=== PATIENT | female | born 1960 | race Hispanic/Latino ===

== ENCOUNTER 2016-06-01 18:19 | Emergency (ER) | payer SELFPAY ==
[2016-06-01 18:45] VITALS: TEMP 98.8
[2016-06-01] MEDS ORDERED: KETOROLAC TROMETHAMINE INJ 60 MG/2 ML VIAL IM ONE (19:04)
--- NOTE | 2016-06-01 22:31 | CT ---
PROCEDURE: Abdomen/Pelvis w/Contrast HISTORY: Right flank/RLQ pain Indication: Same as above Comparison: 08/22/2012 . Technique: CT of the abdomen and pelvis was done with intravenous contrast. Images were obtained from the lung base to the level of the pubic symphysis in axial plane, followed by orthogonal sagittal and coronal reconstruction. Oral contrast was not given for the study. The patient was injected with radiographic contrast intravenously, without any documented immediate adverse reactions. FINDINGS: Images through the lung bases do not show any focal infiltrates or pleural effusions. The distal esophagus is patulous, at the level of the gastroesophageal junction. The gallbladder is surgically absent. In the superior portion of the spleen note is made of a well demarcated linear bandlike nonenhancing area, which may represent a benign septation within the substance of the spleen. Note is made of mild constipation The liver, pancreas and the bilateral adrenal glands appear unremarkable. The bilateral kidneys enhance with contrast in a normal fashion. The urinary bladder is decompressed . The bilateral ureters and the bilateral periureteral soft tissues and fat planes are unremarkable. The small bowel appears unremarkable, without any evidence of small bowel obstruction or bowel wall thickening. There is no CT evidence of acute appendicitis, pericecal inflammatory change or ileocecal mesenteric adenitis. The ileocecal junction appears unremarkable. There is no CT evidence of acute colonic diverticulitis or colitis or large bowel obstruction. The splenic and portal veins are of normal caliber, without any filling defects. There is no pathological lymphadenopathy in the retroperitoneum or in the pelvic region. There is no evidence of free fluid or free air in the abdomen or the pelvic region. There is no clinically significant abdominal aortic aneurysm. There is no clinically significant inguinal or ventral hernia. The visualized lumbar spine shows underlying mild degenerative change . The paravertebral soft tissues are unremarkable. The remainder of the pelvic structures are unremarkable. IMPRESSION: There are no acute findings in the abdomen or the pelvis. A normal appendix and normal periappendiceal fat planes are seen. There is mild constipation Location of Interpretation: Teler[facility]iology Electronically signed by: Raymundo Malcolm MD 06/01/2016 10:21 PM [employer]
--- NOTE | 2016-06-01 22:50 | ED.PDOC ---
History of Present Illness - General Chief Complaint: Problem Stated Complaint: right flank/abdominal pain Time Seen by Provider: 06/01/16 19:03 Source: patient, RN notes reviewed, Vital Signs reviewed Exam Limitations: no limitations - History of Present Illness Initial Comments: Patient is a 56 y/o female who has had right flank and pelvic pain for the past 24 hours. The pain is radiating, sharp. Se denies dysuria, has had nausea and vomiting and diarrhea yesterday. Timing/Duration: 24 hours Severity: severe Improving Factors: nothing Associated Symptoms: malaise, nausea/vomiting, weakness Allergies/Adverse Reactions: Allergies NO KNOWN ALLERGY Allergy (Verified 06/01/16 18:45) Home Medications: Ambulatory Orders Aspirin [Jessica Chewable Low Dose] 81 mg PO DAILY #0 09/22/13 Citalopram Hydrobromide 20 mg PO DAILY #0 09/22/13 Gabapentin [Neurontin] 300 mg PO TID #0 09/22/13 Insulin NPH Isophane & Reg (Hu [Novolin 70/30 (70-30) 100 Unit/ml] 15 units SC BEDTIME #0 09/22/13 Nitroglycerin 0.4 mg Tab [Nitrostat] 1 ea SL .Q5M PRN #0 09/22/13 Omeprazole [Prilosec Cap] 20 mg PO BID #0 cap 09/22/13 Promethazine HCl 25 mg PO Q6H PRN #10 tab 06/01/16 Sulfamethoxazole-Trimethoprim [Bactrim Ds 800-160 mg] 1 tab PO BID #14 tab 06/01 Review of Systems - Review of Systems Constitutional: States: malaise EENTM: States: no symptoms reported Respiratory: States: short of breath Cardiology: States: no symptoms reported Gastrointestinal/Abdominal: States: abdominal pain, diarrhea, nausea, vomiting Genitourinary: States: no symptoms reported Musculoskeletal: States: no symptoms reported Skin: States: no symptoms reported Neurological: States: no symptoms reported Endocrine: States: no symptoms reported Hematologic/Lymphatic: States: no symptoms reported All other Systems: Reviewed and Negative Past Medical History (General) - Patient Medical History Hx Seizures: No Hx Stroke: No Hx Asthma: No Hx of COPD: No Hx Cardiac Disorders: No Hx Congestive Heart Failure: No Hx Pacemaker: No Hx Hypertension: Yes Hx Diabetes: Yes Hx MRSA: No Surgical History: cholecystectomy - Vaccination History Hx Tetanus, Diphtheria Vaccination: No Hx Influenza Vaccination: No Hx Pneumococcal Vaccination: No - Social History Hx Tobacco Use: Yes Hx Alcohol Use: No Hx Substance Use: No Hx Substance Use Treatment: No Hx Depression: No Hx Physical Abuse: No Hx Emotional Abuse: No - Activities of Daily Living Hospice Agency (if applicable):: None - Female History Patient is a Female of Child Bearing Age (10 -59 yrs old): No Patient : No Family Medical History - Family History Mother Family History: Unknown Living Status: Physical Exam - Physical Exam General Appearance: Alert, Obvious distress Ears, Nose, Throat: hearing grossly normal, normal ENT inspection Respiratory: lungs clear, normal breath sounds, no respiratory distress, no accessory muscle use Cardiovascular/Chest: regular rate, rhythm, no edema, no gallop, no murmur Gastrointestinal/Abdominal: normal bowel sounds, soft, no organomegaly, no pulsatile mass, tenderness Back Exam: no vertebral tenderness, CVA tenderness (R) Extremity: normal range of motion, normal inspection Neurologic: alert, normal mood/affect, oriented x 3 Skin Exam: normal color, warm/dry Progress - Results/Orders Results/Orders: 06/01/16 18:30 Temperature 98.8 F Pulse Rate [ 86 pulse ox] Respiratory 20 Rate Blood Pressure 166/74 [Left Arm] O2 Sat by Pulse 94 L Oximetry 06/01/16 21:15 Hold Metformin x 48Hrs [id number] Laboratory Results WBC 10.6 K/mm3 (4.8-10.8) 06/01/16 20:05 RBC 4.81 M/mm3 (4.20-5.40) 06/01/16 20:05 Hgb 13.6 gm/dL (12.0-16.0) 06/01/16 20:05 Hct 41.6 % (36.0-47.0) 06/01/16 20:05 MCV 86.6 fl (81.0-99.0) 06/01/16 20:05 MCH 28.3 pg (27.0-31.0) 06/01/16 20:05 MCHC 32.7 g/dL (33.0-37.0) L 06/01/16 20:05 RDW 14.2 % (11.5-14.5) 06/01/16 20:05 Plt Count 239 K/mm3 (130-400) 06/01/16 20:05 MPV 8.3 fl (7.40-10.4) 06/01/16 20:05 Absolute Neuts (auto) 5.00 K/uL (1.8-6.8) 06/01/16 20:05 Absolute Lymphs (auto) 4.00 K/uL (1.0-3.4) H 06/01/16 20:05 Absolute Monos (auto) 0.70 K/uL (0.2-0.8) 06/01/16 20:05 Absolute Eos (auto) 0.70 K/uL (0.0-0.4) H 06/01/16 20:05 Absolute Basos (auto) 0.10 K/uL (0.0-0.1) 06/01/16 20:05 Neutrophils % 47.5 % (42.0-78.0) 06/01/16 20:05 Lymphocytes % 37.6 % (20.0-50.0) 06/01/16 20:05 Monocytes % 6.6 % (2.0-9.0) 06/01/16 20:05 Eosinophils % 7.0 % (1.0-5.0) H 06/01/16 20:05 Basophils % 1.3 % (0.0-2.0) 06/01/16 20:05 Sodium 139 mmol/L (135-145) 06/01/16 20:05 Potassium 4.6 mmol/L (3.6-5.0) 06/01/16 20:05 Chloride 102 mmol/L (101-111) 06/01/16 20:05 Carbon Dioxide 29 mmol/L (21-31) 06/01/16 20:05 Anion Gap 12.6 (12-18) 06/01/16 20:05 BUN 16 mg/dL (7-18) 06/01/16 20:05 Creatinine 0.74 mg/dL (0.6-1.3) 06/01/16 20:05 BUN/Creatinine Ratio 21.6 (10-20) H 06/01/16 20:05 Random Glucose 253 mg/dL (70-105) H 06/01/16 20:05 Serum Osmolality 287.3 mOsm/L (275-295) 06/01/16 20:05 Calcium 9.4 mg/dL (8.4-10.2) 06/01/16 20:05 Total Bilirubin 0.2 mg/dL (0.2-1.0) 06/01/16 20:05 AST 15 IU/L (10-42) 06/01/16 20:05 ALT 11 IU/L (10-60) 06/01/16 20:05 Alkaline Phosphatase 138 IU/L (42-121) H 06/01/16 20:05 Serum Total Protein 7.5 gm/dL (6.4-8.2) 06/01/16 20:05 Albumin 4.0 g/dl (3.2-5.5) 06/01/16 20:05 Globulin 3.5 gm/dL (2.3-3.5) 06/01/16 20:05 Albumin/Globulin Ratio 1.1 (1.1-1.9) 06/01/16 20:05 Urine Color Yellow (Yellow) 06/01/16 Unknown Urine Appearance Clear (Clear) 06/01/16 Unknown Urine pH 6.5 (4.5-7.8) 06/01/16 Unknown Ur Specific [place] 1.015 (1.005-1.030) 06/01/16 Unknown Urine Protein Negative mg/dL 06/01/16 Unknown Urine Glucose (UA) Negative mg/dL (Negative) 06/01/16 Unknown Urine Ketones Negative mg/dL (NEGATIVE) 06/01/16 Unknown Urine Blood Trace-intact (Negative) H 06/01/16 Unknown Urine Nitrite Negative 06/01/16 Unknown Urine Bilirubin Negative (NEGATIVE) 06/01/16 Unknown Urine Urobilinogen 0.2 mg/dL (0.2-1.0) 06/01/16 Unknown Ur Leukocyte Esterase Negative (Negative) 06/01/16 Unknown Urine RBC 0-1 /hpf 06/01/16 Unknown Urine WBC 0 /hpf 06/01/16 Unknown Ur Epithelial Cells 0 /hpf 06/01/16 Unknown Urine Bacteria 0 06/01/16 Unknown - EKG/XRAY/CT CT: Abd/pelvis: No acute process CT Ordered: Yes CT Interpretation Call Back: No - Report sent Departure - Departure Clinical Impression: Cystitis, Gastroenteritis Time of Disposition: 23:02 Disposition: Discharge to Home or Self Care Condition: Fair Departure Forms: ED Discharge - Pt. Copy, Patient Portal Self Enrollment Instructions: Acute Cystitis, DI for Acute Cystitis, DI for Viral Gastroenteritis -- Adult, Gastroenteritis Diet Diet: resume usual diet Referrals: Radha Avina NP [Primary Care Provider] - 1-2 Weeks Prescriptions: Sulfamethoxazole-Trimethoprim [Bactrim Ds 800-160 mg] 1 tab PO BID #14 tab Promethazine HCl 25 mg PO Q6H PRN #10 tab PRN Reason: Nausea/Vomiting Home Medications: Ambulatory Orders Aspirin [Jessica Chewable Low Dose] 81 mg PO DAILY #0 09/22/13 Citalopram Hydrobromide 20 mg PO DAILY #0 09/22/13 Gabapentin [Neurontin] 300 mg PO TID #0 09/22/13 Insulin NPH Isophane & Reg (Hu [Novolin 70/30 (70-30) 100 Unit/ml] 15 units SC BEDTIME #0 09/22/13 Nitroglycerin 0.4 mg Tab [Nitrostat] 1 ea SL .Q5M PRN #0 09/22/13 Omeprazole [Prilosec Cap] 20 mg PO BID #0 cap 09/22/13 Promethazine HCl 25 mg PO Q6H PRN #10 tab 06/01/16 Sulfamethoxazole-Trimethoprim [Bactrim Ds 800-160 mg] 1 tab PO BID #14 tab 06/01 Additional Instructions: Stay well-hydrated. Follow up in ED for any worsening of symptoms.
[2016-06-01] MEDS ORDERED: PROMETHAZINE HCL INJ 12.5 MG in SODIUM CHLORIDE 0.9% 50ML 50 ML IVPB ONE (22:57)
[2016-06-01] MEDS ORDERED: SULFA/TRIMETH 800/160 (DS) TAB 1 EA TAB PO ONE (23:00)
[2016-06-01] MEDS ORDERED: PROMETHAZINE HCL INJ 25 MG/ML VIAL ONE (23:08)
[2016-06-01] MEDS ORDERED: SODIUM CHLORIDE 0.9% 50ML 50 ML ONE (23:09)
[2016-06-01 23:38] VITALS: BP 171/81; O2SAT 95
== END 2016-06-01 23:37 | disposition home or self-care (01) ==
LOC: ER 18:19
DX: K52.9 Noninfective gastroenteritis and colitis, unspecified (principal); N30.90 Cystitis, unspecified without hematuria; I10 Essential (primary) hypertension; E11.9 Type 2 diabetes mellitus without complications; Z79.899 Other long term (current) drug therapy; Z79.82 Long term (current) use of aspirin
CPT/HCPCS: 74177; 80053; 81001; 85025; A4216; J1885; J2550

== ENCOUNTER → 2016-10-19 | Outpatient (CLI) | payer SELFPAY | LOC: LAB.O 14:23 | PROVIDERS: ATTEND Nurse Practitioner Family | DX: E11.65 Type 2 diabetes mellitus with hyperglycemia (principal); R63.4 Abnormal weight loss; R53.83 Other fatigue ==

== ENCOUNTER → 2016-10-19 | Outpatient (CLI) | payer SELFPAY ==
--- NOTE | 2016-10-20 11:06 | RAD ---
EXAM DESCRIPTION: Chest,2 Views CLINICAL HISTORY: 56 years Female, COPD COMPARISON: 22 September 2015 TECHNIQUE: PA/lateral FINDINGS: There is no cardiac or pulmonary abnormality. The lungs are clear. There is no effusion. Degenerative changes are seen in the thoracic spine. IMPRESSION: 1. Normal two-view chest. Electronically signed by: Alfredo Martinez MD 10/20/2016 11:03 AM CDT
== END ==
LOC: YCFC.O 14:32
PROVIDERS: ATTEND Nurse Practitioner Family
DX: J44.9 Chronic obstructive pulmonary disease, unspecified (principal)

== ENCOUNTER → 2017-06-13 | Outpatient (CLI) | payer OTHER | LOC: LAB.O 14:27 | PROVIDERS: ATTEND Nurse Practitioner Family | DX: E78.2 Mixed hyperlipidemia (principal); E11.65 Type 2 diabetes mellitus with hyperglycemia; I10 Essential (primary) hypertension ==

== ENCOUNTER → 2018-06-06 | Outpatient (CLI) | payer OTHER | LOC: YCFC.O 08:27 | PROVIDERS: ATTEND Nurse Practitioner Family | DX: E78.2 Mixed hyperlipidemia (principal); I10 Essential (primary) hypertension; E11.65 Type 2 diabetes mellitus with hyperglycemia ==

== ENCOUNTER → 2018-11-27 | Outpatient (CLI) | payer OTHER ==
--- NOTE | 2018-11-27 17:19 | US ---
EXAM DESCRIPTION: Breast,Left: Ultrasound CLINICAL HISTORY: 58 yearsFemaleUNSPECIFIED LUMP IN LEFT BREAST . Tender lump in the left breast. No personal history of breast cancer. Remote family history of breast cancer. Childbirth. Postmenopausal 5+ years. No HRT Lifetime risk of developing breast cancer (Tyrer-Cuzick model)(%): 7.7. COMPARISON: Other TECHNIQUE: Transcutaneous scanning of the left breast utilizing andrade-scale and Doppler modes. Scanning performed by the induction brazer ; observation by Dr. Rider. FINDINGS: Ultrasound: Scanning in the area of tenderness and palpable mass at the 5:00 position, 3 cm from the nipple. Hypoechoic mostly circumscribed mass is visible just below the skin surface measuring 7.1 x 5.8 mm. Wider than tall orientation and posterior acoustic enhancement. Minimal internal echoes. Minimal vascularity on color Doppler. Also scanned the upper inner quadrant of the left breast at the 11:00 position 8 cm from the nipple. Circumscribed mass measuring 6.6 x 7.6 mm. Wider than tall orientation with no posterior acoustic features. Nonvascular with color Doppler. No dominant solid mass at either location and no distinct cyst. No parenchymal edema or large calcifications. No overlying skin changes. IMPRESSION: BI-RADS CATEGORY: 0 - INCOMPLETE- Need additional imaging evaluation. FOLLOW-UP: Recall for additional imaging: Bilateral diagnostic digital breast tomosynthesis.. Written communication explaining the IMPRESSION and follow-up, will be mailed to the patient and referring health care provider. The FINDINGS and the FOLLOW-UP plan were reviewed in person with the patient after the examination. Electronically signed by: Bartolome Rider MD 11/27/2018 5:18 PM CDT
== END ==
LOC: MAMMO 09:13
PROVIDERS: ATTEND Nurse Practitioner Family
DX: N63.0 Unspecified lump in unspecified breast (principal)

== ENCOUNTER → 2019-01-12 | Outpatient (CLI) | payer OTHER ==
--- NOTE | 2019-01-16 08:57 | MAM ---
EXAM DESCRIPTION: 3D Diagnostic, Bilateral: Digital Mammography CLINICAL HISTORY: 58 yearsFemaleSCREENING left breast mass. No personal history of breast cancer. Remote family history of breast cancer. Childbirth. Postmenopausal 5+ years. No HRT. Lifetime risk of developing breast cancer (Tyrer-Cuzick model) percentage is 7.7. COMPARISON: Diagnostic left breast ultrasound. 11/27/2018.. TECHNIQUE: Bilateral MLO and CC projection full-field images, digital mammographic tomosynthesis technique. Bilateral 2-D digital full-field MLO images. CAD not utilized. FINDINGS: The breast parenchymal density pattern is: Heterogeneously dense breast tissue, which may obscure small masses. No skin thickening or nipple retraction. Mostly circumscribed mass posterior third of the right breast less than 1 cm diameter, 8 cm from the nipple no definite calcifications 9:00-10:00 position. Same density as the surrounding fibroglandular tissues. Diffuse increased fibroglandular process in the lateral middle third of the left breast. Partially circumscribed mass 12:00 position 7.8 cm from the nipple possibly a lymph node. Same density as the surrounding fibroglandular tissues; no microcalcifications. No mammographic abnormality that correlates with ultrasound abnormality in the anterior lower outer quadrant of the left breast on prior study. IMPRESSION: BI-RADS CATEGORY: 0 - INCOMPLETE- Need additional imaging evaluation. FOLLOW-UP: Recall for additional imaging: Bilateral full-field LM tomosynthesis and 2-D images of the regions of interest. Bilateral targeted left breast ultrasound. Written communication concerning the IMPRESSION and Follow-up, will be mailed to the patient and referring health care provider. Electronically signed by: Bartolome Rider MD 01/16/2019 8:55 AM CDT
--- NOTE | 2019-01-16 16:58 | US ---
EXAM DESCRIPTION: Breast,Bilateral: Ultrasound. CLINICAL HISTORY: 58 yearsFemaleABNORMAL diagnostic mammography last week. Follow-up left breast ultrasound November 27, 2018. COMPARISON: Bilateral diagnostic digital breast tomosynthesis 01/12/2019. TECHNIQUE: Transcutaneous scanning of the bilateral breasts utilizing andrade-scale and Doppler modes. Scanning performed by the scow derrick operator ; observation by Dr. Rider. FINDINGS: Scanning of the right breast upper outer quadrant. Emphasis 8 cm from the nipple. Mostly fibroglandular tissues with minimal fatty tissue. No dominant solid mass or distinct cyst. No parenchymal edema or large calcifications. No overlying skin changes. No finding that correlates with the diagnostic mammographic finding. Scanning of the left breast lower outer quadrant anterior third specifically 3 cm from the nipple. Heterogeneous fibroglandular and fatty tissues. Hypoechoic circumscribed nodule measuring 8.1 x 8.2 mm. Posterior acoustic enhancement. Wider than tall orientation. Nonvascular. Stable since the prior study. No large calcifications or distinct cyst. Scanning upper-outer posterior breast 11:00 and 12:00 locations approximately 8 cm from the nipple. Hypoechoic object with circumscribed margins and minimal vascularity measuring 7.9 x 6.8 mm. Central posterior acoustic enhancement. Wider than tall orientation. No distinct cyst or large calcifications. No overlying skin changes. IMPRESSION: 1. Bi-Rads Category 2: Benign. 2. Please refer to bilateral diagnostic digital breast tomosynthesis examination January 12, 2019. The FINDINGS and the FOLLOW-UP plan were reviewed in person with the patient after the examination. Written communication explaining the IMPRESSION and FOLLOW-UP will be mailed to the patient and referring care provider. Electronically signed by: Bartolome Rider MD 01/16/2019 4:56 PM CDT
== END ==
LOC: MAMMO 08:30
PROVIDERS: ATTEND Nurse Practitioner Family
DX: N63.23 Unspecified lump in the left breast, lower outer quadrant (principal)
CPT/HCPCS: 77066; G0279

== ENCOUNTER → 2019-09-24 | Outpatient (CLI) | payer OTHER | LOC: YCFC.O 08:22 | PROVIDERS: ATTEND Family Medicine | DX: E11.65 Type 2 diabetes mellitus with hyperglycemia (principal); Z51.81 Encounter for therapeutic drug level monitoring ==